=== PATIENT | female | born 1960 | race Caucasian/White ===

== ENCOUNTER 2018-07-09 07:39 | Inpatient (IN) | payer OTHER ==
[~2018-07-09] VITALS: Ht 165.1 cm; Wt 85.5 kg
--- NOTE | 2018-07-09 08:00 | NUR ---
PT BIB [facility] FOR RUQ PAIN THAT CAME ON ALL OF A SUDDEN THAT IS SHARP. PAIN GOES TO PTS RIGHT ARM. MOVEMENT MAKES THE PAIN WORSE. SLEEPING MAKES THE PAIN BETTER. BP: 102/67, HR 72, RR 18, O2 SAT 98% 2L. PT TOOK 325 ASA WHEN AT HOME. PT GIVEN 100 MCG FENTANYL AND 4 MG ZOFRAN. PT DENIES INJURY AND FALL. PT IS ALERT AND ORIENTED. PT IS CONNECTED TO THE MONITOR. CALL LIGHT WITHIN REACH. PA AT BEDSIDE.
[2018-07-09] MEDS ORDERED: ONDANSETRON 2MG/ML, 2ML ONE ×2 (08:14→15:08)
[2018-07-09] MEDS ORDERED: MORPHINE SULFATE 4 MG/ML, 1ML ONE ×2 (08:14→09:22)
[2018-07-09] MEDS: MORPHINE SULFATE 4 MG/ML, 1ML IVPush PRN ×4 (08:17→22:39)
--- NOTE | 2018-07-09 08:21 | NUR ---
US AT BEDSIDE.
[2018-07-09 08:25] LABS: BASOPHILS # (AUTO) 0.03 x10^3/uL (0-0.1); BASOPHILS % (AUTO) 0 % (0-1); EOSINOPHILS # (AUTO) 0.12 x10^3/uL (0-0.4); EOSINOPHILS % (AUTO) 1 % (1-7); LYMPHOCYTES # (AUTO) 1.38 x10^3/uL (1-3.4); LYMPHOCYTES % (AUTO) 12 % (22-44); MD NO; MEAN CORPUSCULAR HEMOGLOBIN 30.1 pg (27.0-34.8); MEAN CORPUSCULAR HGB CONC 33.5 g/dL (32.4-35.8); MEAN CORPUSCULAR VOLUME 89.8 fL (80-100); MEAN PLATELET VOLUME 8.4 fL (7.4-10.4); MONOCYTES # (AUTO) 0.62 x10^3/uL (0.2-0.8); MONOCYTES % (AUTO) 5 % (2-9); NEUTROPHILS # (AUTO) 9.37 x10^3/uL (1.8-6.8); NEUTROPHILS % (AUTO) 81 % (42-75); PLATELET COUNT 214 x10^3/uL (130-400); RED BLOOD COUNT 5.44 x10^6/uL (3.82-5.3); RED CELL DISTRIBUTION WIDTH 13.8 % (9.6-15.2)
[2018-07-09] MEDS ORDERED: SODIUM CHLORIDE FLUSH 10ML SYR IVF ONE ×2 (08:30→15:30)
[2018-07-09] MEDS ORDERED: ONDANSETRON 2MG/ML, 2ML IVPush ONE ×2 (08:30→15:30)
[2018-07-09 08:39] LABS: ALANINE AMINOTRANSFERASE 25 U/L (12-78); ALBUMIN 3.5 g/dL (3.4-5.0); ANION GAP 3 mmol/L (5-15); CALCIUM 8.7 mg/dL (8.5-10.1); CHLORIDE 112 mmol/L (98-107); CREATININE 0.96 mg/dL (0.55-1.02)
[2018-07-09 08:42] LABS: ALKALINE PHOSPHATASE 85 U/L (45-117); BILIRUBIN,TOTAL 0.3 mg/dL (0.2-1.0); TOTAL PROTEIN 7.4 g/dL (6.4-8.2); TROPONIN I < 0.015 ng/mL (0.000-0.045)
--- NOTE | 2018-07-09 09:04 | NUR ---
PT IS RESTING IN BED, WITH EYES CLOSED, NAD. PT IS CONNECTED TO THE MONITOR. CALL LIGHT WITHIN REACH.
--- NOTE | 2018-07-09 09:26 | NUR ---
PT MEDICATED PER ORDER. PT TAKEN TO [facility].
[2018-07-09] MEDS ORDERED: OMNIPAQUE 350 MG/ML, 100ML BOTTLE ONE (09:38)
--- NOTE | 2018-07-09 09:54 | NUR ---
Pt is back from CT. Pt is resting in bed, with eyes closed, respirations equal and non labored. NAD. Pt is connected to the monitor. Call light within reach.
[2018-07-09] MEDS ORDERED: CEFTRIAXONE PMX 1GM/50ML 50 ML ONE (10:28)
[2018-07-09] MEDS ORDERED: KETOROLAC 30 MG/1 ML ONE (10:28)
[2018-07-09] MEDS ORDERED: KETOROLAC 30 MG/1 ML IVPush ONE (10:30)
[2018-07-09] MEDS ORDERED: AZITHROMYCIN 500 MG in SODIUM CHLORIDE 0.9% 250 ML IV ONE (10:30)
[2018-07-09] MEDS ORDERED: CEFTRIAXONE PMX 1GM/50ML 50 ML IV ONE (10:30)
--- NOTE | 2018-07-09 10:36 | NUR ---
PT MEDICATED PER ORDER. FAMILY AT BEDSIDE.
--- NOTE | 2018-07-09 12:00 | NUR ---
PT IS RESTING IN BED, WITH EYES CLOSED, NAD. PT IS CONNECTED TO THE MONITOR. CALL LIGHT WITHIN REACH. FAMILY AT BEDSIDE.
--- NOTE | 2018-07-09 12:56 | NUR ---
PT AMBULATED TO THE BATHROOM WITH STEADY GAIT.
--- NOTE | 2018-07-09 14:46 | NUR ---
PT KEEPS GOING BACK AND FORTH OVER THE COURSE OF SEVERAL HOURS THAT SHE IS IN TOO MUCH PAIN TO GO HOME AND SHE IS OKAY AND CAN GO HOME. WENT OVER DISCHARGE PAPERS WITH PT AND D/Cd IVS. WHILE PT WAS GETTING DRESSED, SHE IS NOW IN TOO MUCH PAIN AND CAN NOT MOVE. FAMILY STATED THAT THEY CAN NOT TAKE HER HOME LIKE THIS.
--- NOTE | 2018-07-09 14:53 | NUR ---
INFORMED AND PA.
--- NOTE | 2018-07-09 15:05 | NUR ---
PTS IVS WERE D/Cd WHEN BEING DISCHARGED. NEW IV PLACED, NOT THAT PT IS BEING ADMITTED.
[2018-07-09] MEDS ORDERED: HYDROmorphone 2 MG/ML, 1ML ONE (15:08)
--- NOTE | 2018-07-09 15:18 | NUR ---
PT MEDICATED PER ORDER.
[2018-07-09] MEDS ORDERED: HYDROmorphone 2 MG/ML, 1ML IVPush PRN (15:30)
--- NOTE | 2018-07-09 15:54 | NUR ---
Report given to Martha AGUSTIN.
[2018-07-09] MEDS ORDERED: BUTALB/APAP/CAFFEINE 50MG/325MG/40MG PO PRN (16:00)
[2018-07-09] MEDS ORDERED: GABAPENTIN 300 MG CAPSULE PO PRN (16:00)
[2018-07-09] MEDS ORDERED: ACETAMINOPHEN 325 MG TABLET PO PRN (16:00)
[2018-07-09] MEDS ORDERED: ONDANSETRON ODT 4 MG PO PRN (16:00)
[2018-07-09] MEDS ORDERED: LABETALOL 5MG/ML, 20ML IVPush PRN (16:00)
[2018-07-09] MEDS ORDERED: ASPIRIN 81 MG TABLET CHEW PO ONE (16:00)
[2018-07-09 16:13] LABS: BASOPHILS # (AUTO) 0.01 x10^3/uL (0-0.1); BASOPHILS % (AUTO) 0 % (0-1); EOSINOPHILS # (AUTO) 0.01 x10^3/uL (0-0.4); EOSINOPHILS % (AUTO) 0 % (1-7); LYMPHOCYTES # (AUTO) 1.27 x10^3/uL (1-3.4); LYMPHOCYTES % (AUTO) 12 % (22-44); MD NO; MEAN CORPUSCULAR HEMOGLOBIN 30.4 pg (27.0-34.8); MEAN CORPUSCULAR VOLUME 89.4 fL (80-100); MEAN PLATELET VOLUME 8.5 fL (7.4-10.4); MONOCYTES # (AUTO) 0.54 x10^3/uL (0.2-0.8); MONOCYTES % (AUTO) 5 % (2-9); NEUTROPHILS # (AUTO) 8.88 x10^3/uL (1.8-6.8); NEUTROPHILS % (AUTO) 83 % (42-75); PLATELET COUNT 227 x10^3/uL (130-400); RED BLOOD COUNT 5.31 x10^6/uL (3.82-5.3); RED CELL DISTRIBUTION WIDTH 13.6 % (9.6-15.2)
[2018-07-09 16:28] LABS: TROPONIN I < 0.015 ng/mL (0.000-0.045)
[2018-07-09] MEDS ORDERED: CEFTRIAXONE PMX 1GM/50ML 50 ML IV SCH (17:00)
[2018-07-09] MEDS: NICOTINE 21 MG/24 HR PATCH.TD24 TD SCH (17:12)
[2018-07-09] MEDS: LIDODERM 5% PATCH TD PRN (17:12)
[2018-07-09] MEDS: ENOXAPARIN 40 MG/0.4 ML SQ SCH (17:12)
[2018-07-09] MEDS: SODIUM CHLORIDE 0.9% 1,000 ML IV SCH (17:12)
[2018-07-09] MEDS: ONDANSETRON 2MG/ML, 2ML IVPush PRN ×2 (17:13→22:39)
[2018-07-09 17:46] VITALS: BP 138/73
[2018-07-09] MEDS ORDERED: AZITHROMYCIN 500 MG in SODIUM CHLORIDE 0.9% 250 ML IV SCH (18:00)
[2018-07-09] MEDS: OXYcodone IR 5MG TABLET PO PRN (18:39)
[2018-07-09 20:50] LABS: RAPID INFLUENZA A Negative (Negative); RAPID INFLUENZA B Negative (Negative)
[2018-07-09 21:45] VITALS: BP 144/82
[2018-07-09 22:38] LABS: TROPONIN I < 0.015 ng/mL (0.000-0.045)
[2018-07-10] MEDS: OXYcodone IR 5MG TABLET PO PRN (01:05)
[2018-07-10] MEDS: MORPHINE SULFATE 4 MG/ML, 1ML IVPush PRN ×2 (03:08→14:16)
[2018-07-10 03:15] VITALS: BP 149/78
[2018-07-10 06:06] LABS: ALBUMIN 3.2 g/dL (3.4-5.0); ANION GAP 5 mmol/L (5-15); CALCIUM 8.3 mg/dL (8.5-10.1); CHLORIDE 110 mmol/L (98-107)
[2018-07-10 06:10] LABS: ALANINE AMINOTRANSFERASE 21 U/L (12-78); ALKALINE PHOSPHATASE 76 U/L (45-117); BILIRUBIN,TOTAL 0.5 mg/dL (0.2-1.0); CREATININE 0.72 mg/dL (0.55-1.02)
[2018-07-10 06:24] VITALS: BP 136/78
[2018-07-10] MEDS: CYCLOBENZAPRINE 10 MG TABLET PO PRN ×2 (09:08→20:05)
[2018-07-10] MEDS: SODIUM CHLORIDE 0.9% 1,000 ML IV SCH ×2 (09:08→20:20)
[2018-07-10] MEDS: IBUPROFEN 200 MG TABLET PO PRN ×2 (09:08→17:40)
[2018-07-10 14:35] VITALS: BP 131/78
[2018-07-10 14:59] LABS: HCT (SEDRATE) 46.8 % (34.6-47.8)
[2018-07-10] MEDS: ENOXAPARIN 40 MG/0.4 ML SQ SCH (17:40)
[2018-07-10] MEDS: NICOTINE 21 MG/24 HR PATCH.TD24 TD SCH (17:40)
[2018-07-10 19:09] VITALS: BP 146/71
[2018-07-10] MEDS: LIDODERM 5% PATCH TD PRN (20:05)
[2018-07-11 00:44] VITALS: BP 164/81
[2018-07-11 05:31] LABS: BASOPHILS # (AUTO) 0.07 x10^3/uL (0-0.1); BASOPHILS % (AUTO) 1 % (0-1); EOSINOPHILS # (AUTO) 0.09 x10^3/uL (0-0.4); EOSINOPHILS % (AUTO) 1 % (1-7); LYMPHOCYTES # (AUTO) 2.45 x10^3/uL (1-3.4); LYMPHOCYTES % (AUTO) 24 % (22-44); MD NO; MEAN CORPUSCULAR HEMOGLOBIN 29.9 pg (27.0-34.8); MEAN CORPUSCULAR HGB CONC 33.5 g/dL (32.4-35.8); MEAN CORPUSCULAR VOLUME 89.3 fL (80-100); MEAN PLATELET VOLUME 9.2 fL (7.4-10.4); MONOCYTES # (AUTO) 0.62 x10^3/uL (0.2-0.8); MONOCYTES % (AUTO) 6 % (2-9); NEUTROPHILS # (AUTO) 7.11 x10^3/uL (1.8-6.8); NEUTROPHILS % (AUTO) 69 % (42-75); PLATELET COUNT 174 x10^3/uL (130-400); RED BLOOD COUNT 4.95 x10^6/uL (3.82-5.3); RED CELL DISTRIBUTION WIDTH 13.4 % (9.6-15.2)
[2018-07-11 05:33] LABS: CHLORIDE 108 mmol/L (98-107)
[2018-07-11 05:42] LABS: ALANINE AMINOTRANSFERASE 17 U/L (12-78); ALKALINE PHOSPHATASE 69 U/L (45-117); ANION GAP 5 mmol/L (5-15); BILIRUBIN,TOTAL 0.5 mg/dL (0.2-1.0); CALCIUM 8.4 mg/dL (8.5-10.1); CREATININE 0.61 mg/dL (0.55-1.02); TOTAL PROTEIN 6.5 g/dL (6.4-8.2)
[2018-07-11 07:03] VITALS: BP 149/88
[2018-07-11] MEDS: CYCLOBENZAPRINE 10 MG TABLET PO PRN (08:05)
[2018-07-11] MEDS: IBUPROFEN 200 MG TABLET PO PRN (08:06)
[2018-07-11] MEDS ORDERED: ACET325T14 PO (10:23)
[2018-07-11] MEDS ORDERED: CEFD300C37 PO (10:23)
[2018-07-11] MEDS ORDERED: IBUP-1484 PO (10:23)
[2018-07-11] MEDS ORDERED: AZIT500T PO (10:23)
[2018-07-11] MEDS ORDERED: LIDO700A20 TD (10:23)
[2018-07-11] MEDS ORDERED: CYCL-259 PO (10:23)
== END 2018-07-11 12:00 | disposition home or self-care (01) | DRG 313 ==
LOC: ED 08:56 → EDIP 15:07 → 5SO 16:11
PROVIDERS: ADMIT Internal Medicine; ATTEND Internal Medicine
DX: R07.89 Other chest pain (principal); J18.9 Pneumonia, unspecified organism; R73.9 Hyperglycemia, unspecified; I10 Essential (primary) hypertension; R79.1 Abnormal coagulation profile; Z82.49 Family history of ischemic heart disease and other diseases of the circulatory system; Z87.891 Personal history of nicotine dependence; Z88.0 Allergy status to penicillin; Z88.1 Allergy status to other antibiotic agents; Z90.49 Acquired absence of other specified parts of digestive tract
CPT/HCPCS: 36415; 71045; 71275; 76700; 80053; 83690; 83880; 84484; 85025; 85379; 85651; 86140; 87040; 87400; 93005; 96365; 96375; 99285; G0378; J0456; J0696; J1170; J1650; J1885; J2405; Q9967; J7030; J7050